=== PATIENT | female | born 1960 | race Two or more races ===

== ENCOUNTER 2020-09-29 22:06 | Emergency (ER) | payer MEDICAID ==
[~2020-09-29] VITALS: Ht 152.4 cm; Wt 87.0 kg
[~2020-09-29 22:06] MED LIST: GLIP10TA10 MT; LOSA25TA26 MT; METF-414 MT; SIMV5TAB58 MT
[2020-09-29 23:58] LABS: BASOPHILS % 0.4 % (0.0-2.0); EOSINOPHILS % 0.9 % (0.0-5.0); HEMATOCRIT. 34.9 % (36.0-48.0); HEMOGLOBIN. 11.7 g/dL (12.0-16.0); LYMPHOCYTES % 17.8 % (20.0-50.0); MEAN CORPUSCULAR HEMOGLOBIN 30.5 pg (28.0-32.0); MEAN CORPUSCULAR VOLUME 90.7 fL (81.0-99.0); MEAN PLATELET VOLUME 10.3 fl (7.4-10.4); MONOCYTES % 8.9 % (2.0-8.0); PLATELET 192 x1000/uL (130-400); RED BLOOD CELL COUNT 3.85 mill/uL (4.2-5.4); RED CELL DISTRIBUTION WIDTH 14.9 % (11.6-14.6)
[2020-09-30] LABS: CHLORIDE 108 mEq/L (98-107)
[2020-09-30 00:06] LABS: CLARITY URINE CLEAR (CLEAR); COLOR URINE YELLOW (YELLOW); KETONES URINE NEGATIVE (NEGATIVE); LEUKOCYTE ESTERASE URINE 2+ (NEGATIVE); NITRITE URINE NEGATIVE (NEGATIVE); OCCULT BLOOD URINE TRACE (NEGATIVE); PROTEIN URINE TRACE (NEGATIVE)
[2020-09-30 00:13] LABS: PROTHROMBIN TIME 10.3 sec (9.6-11.0)
[2020-09-30] MEDS ORDERED: KETOROLAC 15MG/ML VIAL IV NR (00:30)
[2020-09-30] MEDS ORDERED: SODIUM CHLORIDE 0.9% 1,000 ML IV NR (00:30)
[2020-09-30] MEDS ORDERED: SULF1TAB48 MT (01:26)
[2020-09-30] MEDS ORDERED: IBUP-2029 MT (01:26)
[2020-09-30] MEDS ORDERED: SULFAMETHOXAZOLE/TRIMETHOPRIM 800/160MG TABLET PO NR (01:45)
[2020-09-30 02:23] VITALS: BP 126/56
== END 2020-09-30 02:25 | disposition home or self-care (01) ==
LOC: ER 22:06 → ENRESERV 23:34 → CANRESERV 23:34 → ER 09-30 02:25 → CANBEDREQ 09-30 02:38
DX: N12 Tubulo-interstitial nephritis, not specified as acute or chronic (principal); R00.0 Tachycardia, unspecified; I10 Essential (primary) hypertension; E11.9 Type 2 diabetes mellitus without complications; M19.90 Unspecified osteoarthritis, unspecified site; E78.00 Pure hypercholesterolemia, unspecified; Z86.73 Personal history of transient ischemic attack (TIA), and cerebral infarction without residual deficits; Z87.440 Personal history of urinary (tract) infections; Z98.890 Other specified postprocedural states
CPT/HCPCS: 36415; 71045; 74176; 80053; 81003; 83605; 84145; 85025; 85610; 87040; 87077; 87086; 87186; 93005; 96361; 96374; 99285; J1885

== ENCOUNTER 2020-11-14 18:51 | Inpatient (IN) | payer MEDICAID ==
[~2020-11-14] VITALS: Ht 165.1 cm; Wt 90.3 kg
[~2020-11-14 18:51] MED LIST changes: +IBUP-2029 MT; +SULF1TAB48 MT
[2020-11-14] MEDS ORDERED: KETOROLAC 30MG/ML VIAL IV STA (19:33)
[2020-11-14] MEDS ORDERED: SODIUM CHLORIDE 0.9% 1000ML BAG (SEPSIS BOLUS) IV ONE (19:45)
[2020-11-14] MEDS ORDERED: CEFTRIAXONE 1 G PREMIX 50 ML IV ONE (19:45)
[2020-11-14] MEDS ORDERED: MEROPENEM 1,000 MG in SODIUM CHLORIDE 0.9% 100 ML IV SCH (19:45)
[2020-11-14 20:51] LABS: BASOPHILS % 0.2 % (0.0-2.0); EOSINOPHILS % 0.1 % (0.0-5.0); HEMATOCRIT. 35.4 % (36.0-48.0); LYMPHOCYTES % 7.9 % (20.0-50.0); MEAN CORPUSCULAR VOLUME 91.3 fL (81.0-99.0); MEAN PLATELET VOLUME 10.4 fl (7.4-10.4); MONOCYTES % 6.1 % (2.0-8.0); NEUTROPHILS % 85.7 % (40.0-76.0); PLATELET 168 x1000/uL (130-400); RED BLOOD CELL COUNT 3.87 mill/uL (4.2-5.4); RED CELL DISTRIBUTION WIDTH 14.8 % (11.6-14.6)
[2020-11-14 20:57] LABS: CHLORIDE 106 mEq/L (98-107)
[2020-11-14 21:00] LABS: PROTHROMBIN TIME 10.4 sec (9.6-11.0)
[2020-11-14 21:36] LABS: CLARITY URINE CLEAR (CLEAR); COLOR URINE YELLOW (YELLOW); KETONES URINE NEGATIVE (NEGATIVE); LEUKOCYTE ESTERASE URINE 2+ (NEGATIVE); NITRITE URINE NEGATIVE (NEGATIVE); OCCULT BLOOD URINE TRACE (NEGATIVE); PROTEIN URINE NEGATIVE (NEGATIVE); SPECIFIC GRAVITY URINE 1.008 (1.005-1.030); UROBILINOGEN URINE 0.2 E.U./dL (0.2-1.0)
[2020-11-15 02:50] VITALS: BP 139/58
[2020-11-15] MEDS ORDERED: DEXTROSE 50% WATER 50ML SYRINGE IV PRN (04:00)
[2020-11-15] MEDS ORDERED: CEFTRIAXONE 1 G PREMIX 50 ML IV SCH (04:00)
[2020-11-15] MEDS ORDERED: ONDANSETRON HCL 4MG/2ML INJ IV PRN (04:00)
[2020-11-15 05:10] VITALS: BP 139/58
[2020-11-15] MEDS ORDERED: CEFTRIAXONE 1,000 MG in DEXTROSE 5% WATER 50 ML IV SCH (06:00)
[2020-11-15] MEDS: INSULIN LISPRO 100 UNITS/ML SUBCUT SCH ×4 (06:54→20:26)
[2020-11-15] MEDS: BLOOD SUGAR DIAGNOSTIC STRIP TEST SCH ×4 (06:54→20:26)
[2020-11-15 08:00] VITALS: BP 104/58
[2020-11-15] MEDS ORDERED: METOPROLOL TARTRATE 25MG TABLET PO NR (08:15)
[2020-11-15] MEDS: DEXT 5%/0.45% NACL 1000ML 1,000 ML IV SCH (08:59)
[2020-11-15] MEDS: ENOXAPARIN 40MG/0.4ML SYR SUBCUT SCH (08:59)
[2020-11-15] MEDS: FAMOTIDINE 20MG TABLET PO SCH ×2 (08:59→20:15)
[2020-11-15 09:15] LABS: HEMATOCRIT. 32.6 % (36.0-48.0); HEMOGLOBIN. 10.7 g/dL (12.0-16.0); MEAN CORPUSCULAR HEMOGLOBIN 30.1 pg (28.0-32.0); MEAN PLATELET VOLUME 10.4 fl (7.4-10.4); PLATELET 139 x1000/uL (130-400); RED BLOOD CELL COUNT 3.54 mill/uL (4.2-5.4); RED CELL DISTRIBUTION WIDTH 14.7 % (11.6-14.6)
[2020-11-15 09:16] LABS: CHLORIDE 111 mEq/L (98-107)
[2020-11-15 09:25] LABS: LDL CHOLESTEROL 29 mg/dL (5-100)
[2020-11-15 09:26] LABS: HDL CHOLESTEROL 61 mg/dL (40-59)
[2020-11-15] MEDS ORDERED: POTASSIUM CHLORIDE 20MEQ TABLET SR PO NR (10:15)
[2020-11-15 12:00] VITALS: BP 141/49
[2020-11-15] MEDS: MEROPENEM 1,000 MG in SODIUM CHLORIDE 0.9% 100 ML IV SCH ×2 (12:44→18:26)
[2020-11-15 16:00] VITALS: BP 102/56
[2020-11-15 19:43] LABS: PLATELET ESTIMATE NORMAL
[2020-11-15 20:00] VITALS: BP 106/51
[2020-11-15] MEDS: ACETAMINOPHEN 325MG TABLET PO PRN (20:15)
[2020-11-16] VITALS: BP 112/56
[2020-11-16] MEDS: MEROPENEM 1,000 MG in SODIUM CHLORIDE 0.9% 100 ML IV SCH ×3 (01:08→17:37)
[2020-11-16 04:00] VITALS: BP 102/50
[2020-11-16] MEDS: INSULIN LISPRO 100 UNITS/ML SUBCUT SCH ×4 (06:26→21:18)
[2020-11-16] MEDS: BLOOD SUGAR DIAGNOSTIC STRIP TEST SCH ×4 (06:26→21:16)
[2020-11-16] MEDS: DEXT 5%/0.45% NACL 1000ML 1,000 ML IV SCH ×3 (06:47→21:20)
[2020-11-16 07:34] LABS: BASOPHILS % 0.2 % (0.0-2.0); EOSINOPHILS % 1.1 % (0.0-5.0); HEMATOCRIT. 32.8 % (36.0-48.0); LYMPHOCYTES % 12.7 % (20.0-50.0); MEAN CORPUSCULAR HEMOGLOBIN 30.7 pg (28.0-32.0); MEAN CORPUSCULAR VOLUME 91.8 fL (81.0-99.0); MEAN PLATELET VOLUME 10.3 fl (7.4-10.4); MONOCYTES % 8.7 % (2.0-8.0); NEUTROPHILS % 77.3 % (40.0-76.0); PLATELET 128 x1000/uL (130-400); RED BLOOD CELL COUNT 3.57 mill/uL (4.2-5.4); RED CELL DISTRIBUTION WIDTH 14.6 % (11.6-14.6)
[2020-11-16 07:44] LABS: CHLORIDE 111 mEq/L (98-107)
[2020-11-16 08:00] VITALS: BP 116/55
[2020-11-16] MEDS: FAMOTIDINE 20MG TABLET PO SCH ×2 (08:45→21:17)
[2020-11-16] MEDS: ENOXAPARIN 40MG/0.4ML SYR SUBCUT SCH (08:45)
[2020-11-16] MEDS: ACETAMINOPHEN 325MG TABLET PO PRN ×3 (08:51→23:21)
[2020-11-16 12:00] VITALS: BP 116/74
[2020-11-16 16:00] VITALS: BP 103/44
[2020-11-16 20:00] VITALS: BP 107/52
[2020-11-16] MEDS ORDERED: ZOLPIDEM TARTRATE 5MG TABLET PO PRN (23:00)
[2020-11-17] VITALS: BP 100/71
[2020-11-17] MEDS: MEROPENEM 1,000 MG in SODIUM CHLORIDE 0.9% 100 ML IV SCH ×3 (01:37→17:08)
[2020-11-17 04:00] VITALS: BP 102/52
[2020-11-17] MEDS: BLOOD SUGAR DIAGNOSTIC STRIP TEST SCH ×4 (06:25→21:00)
[2020-11-17] MEDS: INSULIN LISPRO 100 UNITS/ML SUBCUT SCH ×4 (06:25→21:00)
[2020-11-17 07:20] LABS: BASOPHILS % 0.3 % (0.0-2.0); EOSINOPHILS % 2.2 % (0.0-5.0); HEMATOCRIT. 32.7 % (36.0-48.0); HEMOGLOBIN. 10.8 g/dL (12.0-16.0); LYMPHOCYTES % 17.5 % (20.0-50.0); MEAN CORPUSCULAR HEMOGLOBIN 30.6 pg (28.0-32.0); MEAN CORPUSCULAR VOLUME 92.8 fL (81.0-99.0); MEAN PLATELET VOLUME 10.7 fl (7.4-10.4); MONOCYTES % 9.2 % (2.0-8.0); NEUTROPHILS % 70.8 % (40.0-76.0); PLATELET 148 x1000/uL (130-400); RED BLOOD CELL COUNT 3.53 mill/uL (4.2-5.4); RED CELL DISTRIBUTION WIDTH 14.8 % (11.6-14.6)
[2020-11-17 07:48] LABS: CHLORIDE 112 mEq/L (98-107)
[2020-11-17 08:00] VITALS: BP 121/70
[2020-11-17] MEDS: ENOXAPARIN 30MG/0.3ML SYR SUBCUT SCH ×2 (09:13→22:35)
[2020-11-17] MEDS: FAMOTIDINE 20MG TABLET PO SCH ×2 (09:13→22:34)
[2020-11-17 12:00] VITALS: BP 106/73
[2020-11-17] MEDS: DEXT 5%/0.45% NACL 1000ML 1,000 ML IV SCH (13:10)
[2020-11-17 16:00] VITALS: BP 124/85
[2020-11-17 20:00] VITALS: BP 125/66
[2020-11-18] VITALS: BP 106/58
[2020-11-18] MEDS: MEROPENEM 1,000 MG in SODIUM CHLORIDE 0.9% 100 ML IV SCH ×3 (02:15→17:10)
[2020-11-18] MEDS: DEXT 5%/0.45% NACL 1000ML 1,000 ML IV SCH ×2 (02:20→17:10)
[2020-11-18 04:00] VITALS: BP 106/80
[2020-11-18] MEDS: BLOOD SUGAR DIAGNOSTIC STRIP TEST SCH ×4 (07:10→20:03)
[2020-11-18 08:36] VITALS: BP 121/71
[2020-11-18] MEDS: FAMOTIDINE 20MG TABLET PO SCH ×2 (09:09→20:28)
[2020-11-18] MEDS: ENOXAPARIN 30MG/0.3ML SYR SUBCUT SCH ×2 (09:10→20:28)
[2020-11-18] MEDS: INSULIN LISPRO 100 UNITS/ML SUBCUT SCH ×4 (09:21→21:48)
[2020-11-18 12:08] VITALS: BP 113/54
[2020-11-18 16:06] VITALS: BP 102/59
[2020-11-18] MEDS: ACETAMINOPHEN 325MG TABLET PO PRN (19:52)
[2020-11-18 20:00] VITALS: BP 130/70
[2020-11-19] VITALS: BP 128/70
[2020-11-19] MEDS: MEROPENEM 1,000 MG in SODIUM CHLORIDE 0.9% 100 ML IV SCH ×3 (01:38→17:40)
[2020-11-19 04:00] VITALS: BP 113/52
[2020-11-19] MEDS: BLOOD SUGAR DIAGNOSTIC STRIP TEST SCH ×4 (06:17→21:01)
[2020-11-19] MEDS: INSULIN LISPRO 100 UNITS/ML SUBCUT SCH ×4 (06:41→21:01)
[2020-11-19 08:00] VITALS: BP 136/45
[2020-11-19] MEDS: ENOXAPARIN 30MG/0.3ML SYR SUBCUT SCH ×2 (10:00→20:47)
[2020-11-19] MEDS: DEXT 5%/0.45% NACL 1000ML 1,000 ML IV SCH ×2 (10:01→17:40)
[2020-11-19] MEDS: FAMOTIDINE 20MG TABLET PO SCH ×2 (10:01→20:47)
[2020-11-19 12:00] VITALS: BP 120/70
[2020-11-19 16:00] VITALS: BP 143/61
[2020-11-19 20:00] VITALS: BP 138/67
[2020-11-20] VITALS: BP 125/43
[2020-11-20 04:00] VITALS: BP_SYST 106; BP_DIAS 31; BP_DIAS 51
[2020-11-20] MEDS: MEROPENEM 1,000 MG in SODIUM CHLORIDE 0.9% 100 ML IV SCH ×3 (04:04→17:53)
[2020-11-20] MEDS: INSULIN LISPRO 100 UNITS/ML SUBCUT SCH ×4 (06:54→23:27)
[2020-11-20] MEDS: BLOOD SUGAR DIAGNOSTIC STRIP TEST SCH ×4 (06:54→21:00)
[2020-11-20 08:00] VITALS: BP 94/40
[2020-11-20] MEDS: FAMOTIDINE 20MG TABLET PO SCH ×2 (09:20→23:27)
[2020-11-20] MEDS: ENOXAPARIN 30MG/0.3ML SYR SUBCUT SCH ×2 (09:20→23:26)
[2020-11-20] MEDS: DEXT 5%/0.45% NACL 1000ML 1,000 ML IV SCH (09:22)
[2020-11-20 12:00] VITALS: BP 125/49
[2020-11-20 16:00] VITALS: BP 119/52
[2020-11-20 20:00] VITALS: BP 110/52
[2020-11-21] VITALS: BP 119/54
[2020-11-21] MEDS: MEROPENEM 1,000 MG in SODIUM CHLORIDE 0.9% 100 ML IV SCH ×2 (02:46→09:26)
[2020-11-21 04:00] VITALS: BP_SYST 100; BP_DIAS 50; BP_DIAS 56
[2020-11-21] MEDS: BLOOD SUGAR DIAGNOSTIC STRIP TEST SCH ×3 (06:24→17:15)
[2020-11-21] MEDS: DEXT 5%/0.45% NACL 1000ML 1,000 ML IV SCH ×2 (06:24→10:55)
[2020-11-21] MEDS: INSULIN LISPRO 100 UNITS/ML SUBCUT SCH ×3 (06:31→17:14)
[2020-11-21 08:00] VITALS: BP 122/66
[2020-11-21] MEDS: FAMOTIDINE 20MG TABLET PO SCH (09:26)
[2020-11-21] MEDS: ENOXAPARIN 30MG/0.3ML SYR SUBCUT SCH (09:26)
[2020-11-21 12:00] VITALS: BP 125/78
[2020-11-21 16:00] VITALS: BP 128/87
[2020-11-21 16:19] VITALS: BP 128/87
== END 2020-11-21 18:08 | disposition home or self-care (01) | DRG 720 ==
LOC: ER 21:36 → 8WST 11-15 00:32 → EDBEDREQ 11-15 00:34 → EDBEDREQTM 11-15 00:34 → EDBEDREQSVC 11-15 00:34 → ENRESERV 11-15 01:25
PROVIDERS: ADMIT Internal Medicine; ATTEND Internal Medicine
DX: A41.9 Sepsis, unspecified organism (principal); E11.649 Type 2 diabetes mellitus with hypoglycemia without coma; E66.9 Obesity, unspecified; E78.5 Hyperlipidemia, unspecified; I10 Essential (primary) hypertension; N20.0 Calculus of kidney; E78.00 Pure hypercholesterolemia, unspecified; N39.0 Urinary tract infection, site not specified; B96.20 Unspecified Escherichia coli [E. coli] as the cause of diseases classified elsewhere; Z86.19 Personal history of other infectious and parasitic diseases; Z79.899 Other long term (current) drug therapy; Z86.73 Personal history of transient ischemic attack (TIA), and cerebral infarction without residual deficits; Z68.33 Body mass index [BMI] 33.0-33.9, adult; Z71.3 Dietary counseling and surveillance
CPT/HCPCS: 36415; 71045; 74176; 80048; 80053; 80061; 81003; 82962; 83036; 83605; 84484; 85025; 87077; 87186; 93005; 99285; C1893; J0696; J1650; J1815; J1885; J2185; J7030; J7050; J7060

== ENCOUNTER 2021-03-25 15:19 | Emergency (ER) | payer MEDICAID ==
[~2021-03-25] VITALS: Ht 160 cm; Wt 90.0 kg
[~2021-03-25 15:19] MED LIST changes: -SULF1TAB48 MT
[2021-03-25 15:23] VITALS: BP 126/68
[2021-03-25 16:33] LABS: CHLORIDE 111 mEq/L (98-107)
[2021-03-25 16:34] LABS: BASOPHILS % 0.3 % (0.0-2.0); EOSINOPHILS % 1.8 % (0.0-5.0); HEMATOCRIT. 38.8 % (36.0-48.0); HEMOGLOBIN. 12.5 g/dL (12.0-16.0); LYMPHOCYTES % 25.2 % (20.0-50.0); MEAN CORPUSCULAR HEMOGLOBIN 29.5 pg (28.0-32.0); MEAN CORPUSCULAR VOLUME 91.7 fL (81.0-99.0); MEAN PLATELET VOLUME 10.1 fl (7.4-10.4); MONOCYTES % 8.4 % (2.0-8.0); NEUTROPHILS % 64.3 % (40.0-76.0); PLATELET 206 x1000/uL (130-400); RED BLOOD CELL COUNT 4.23 mill/uL (4.2-5.4); RED CELL DISTRIBUTION WIDTH 13.8 % (11.6-14.6)
[2021-03-25 16:37] LABS: ETHANOL BLOOD < 10 mg/dL
[2021-03-25] MEDS ORDERED: CARB-299 MT (17:28)
== END 2021-03-25 17:42 | disposition home or self-care (01) ==
LOC: ER 15:19
DX: G25.9 Extrapyramidal and movement disorder, unspecified (principal); E11.9 Type 2 diabetes mellitus without complications; E78.00 Pure hypercholesterolemia, unspecified; I10 Essential (primary) hypertension; Z79.899 Other long term (current) drug therapy
CPT/HCPCS: 36415; 80053; 80320; 82962; 85025; 93005; 99284; G0480

== ENCOUNTER 2022-02-08 15:51 | Emergency (ER) | payer MEDICAID ==
[~2022-02-08] VITALS: Ht 152.4 cm; Wt 104.0 kg
[~2022-02-08 15:51] MED LIST changes: +CARB-299 MT
[2022-02-08 17:43] VITALS: BP 121/56
[2022-02-08] MEDS ORDERED: VISCOUS LIDOCAINE 2% 15 ML UDC PO STA (18:11)
[2022-02-08] MEDS ORDERED: ACETAMINOPHEN 325MG TABLET PO STA (18:11)
[2022-02-08] MEDS ORDERED: ONDANSETRON 4MG ODT PO STA (18:11)
[2022-02-08] MEDS ORDERED: MAGNESIUM/ALUMINUM HYDROXIDE/SIMETHICONE 30ML UDC PO STA (18:11)
[2022-02-08 19:19] LABS: BASOPHILS % 0.3 % (0.0-2.0); CHLORIDE 111 mEq/L (98-107); HEMATOCRIT. 33.4 % (36.0-48.0); HEMOGLOBIN. 11.4 g/dL (12.0-16.0); LYMPHOCYTES % 28.8 % (20.0-50.0); MEAN CORPUSCULAR HEMOGLOBIN 31.4 pg (28.0-32.0); MEAN CORPUSCULAR VOLUME 91.8 fL (81.0-99.0); MONOCYTES % 7.4 % (2.0-8.0); NEUTROPHILS % 61.5 % (40.0-76.0); PLATELET 166 x1000/uL (130-400); RED BLOOD CELL COUNT 3.64 mill/uL (4.2-5.4); RED CELL DISTRIBUTION WIDTH 13.8 % (11.6-14.6)
[2022-02-08 19:27] LABS: ETHANOL BLOOD < 10 mg/dL
[2022-02-08] MEDS ORDERED: ONDA4TAB50 MT (20:08)
[2022-02-08] MEDS ORDERED: PROT40 MT (20:08)
[2022-02-08 20:11] LABS: *AMPHETAMINES SCREEN URINE NEGATIVE (NEGATIVE); *BARBITURATES SCREEN URINE NEGATIVE (NEGATIVE); *BENZODIAZEPINES SCREEN URINE NEGATIVE (NEGATIVE); *COCAINE SCREEN URINE NEGATIVE (NEGATIVE); CANNABINOID URINE SCREEN NEGATIVE (NEGATIVE); METHADONE URINE SCREEN NEGATIVE (NEGATIVE); OPIATES URINE SCREEN NEGATIVE (NEGATIVE); PHENCYCLIDINE URINE SCREEN NEGATIVE (NEGATIVE)
[2022-02-08 20:15] LABS: CLARITY URINE HAZY (CLEAR); COLOR URINE YELLOW (YELLOW); SPECIFIC GRAVITY URINE 1.025 (1.005-1.030)
[2022-02-08 20:16] LABS: KETONES URINE 1+ (NEGATIVE); NITRITE URINE NEGATIVE (NEGATIVE); OCCULT BLOOD URINE NEGATIVE (NEGATIVE); PROTEIN URINE 1+ (NEGATIVE); UROBILINOGEN URINE 0.2 E.U./dL (0.2-1.0)
[2022-02-08 20:17] LABS: LEUKOCYTE ESTERASE URINE 2+ (NEGATIVE)
[2022-02-08] MEDS ORDERED: NITR-87 MT (20:42)
== END 2022-02-08 20:50 | disposition home or self-care (01) ==
LOC: ER 16:06
DX: N39.0 Urinary tract infection, site not specified (principal); I10 Essential (primary) hypertension; E11.9 Type 2 diabetes mellitus without complications; E78.00 Pure hypercholesterolemia, unspecified; D64.9 Anemia, unspecified; Z13.9 Encounter for screening, unspecified
CPT/HCPCS: 36415; 76705; 80053; 80305; 80320; 81003; 83690; 85025; 87086; 99284; Q0162; G0480

== ENCOUNTER 2025-01-19 15:21 | Emergency (ER) | payer MEDICAID ==
[~2025-01-19] VITALS: Ht 160 cm; Wt 91.0 kg
[~2025-01-19 15:21] MED LIST changes: -CARB-299 MT; +CARB-324 MT; -GLIP10TA10 MT; +GLIP10TA17 MT; +IBUP-1455 MT; -IBUP-2029 MT; +NITR-87 MT; +ONDA4TAB50 MT; +PROT40 MT
[2025-01-19 15:29] VITALS: BP 133/65; PULSE 91; RESP 16; TEMP 36.7; O2SAT 99
[2025-01-19 16:19] LABS: BASOPHILS % 0.5 % (0.0-2.0); EOSINOPHILS % 2.6 % (0.0-5.0); HEMATOCRIT. 35.8 % (36.0-48.0); HEMOGLOBIN. 11.8 g/dL (12.0-16.0); LYMPHOCYTES % 21.0 % (20.0-50.0); MEAN PLATELET VOLUME 10.6 fl (7.4-10.4); MONOCYTES % 8.2 % (2.0-8.0); NEUTROPHILS % 67.7 % (40.0-76.0); PLATELET 175 x1000/uL (130-400); RED BLOOD CELL COUNT 3.90 mill/uL (4.2-5.4); RED CELL DISTRIBUTION WIDTH 13.7 % (11.6-14.6)
[2025-01-19 16:35] LABS: CREATININE 0.8 mg/dL (0.6-1.0); UREA NITROGEN BLOOD 14 mg/dL (9-23)
[2025-01-19 17:16] LABS: CLARITY URINE CLEAR (CLEAR); COLOR URINE YELLOW (YELLOW); GLUCOSE URINE NEGATIVE (NEGATIVE); KETONES URINE TRACE (NEGATIVE); LEUKOCYTE ESTERASE URINE 2+ (NEGATIVE); NITRITE URINE NEGATIVE (NEGATIVE); OCCULT BLOOD URINE 1+ (NEGATIVE); PH URINE 6.0 (4.5-8.0); PROTEIN URINE NEGATIVE (NEGATIVE); SPECIFIC GRAVITY URINE 1.017 (1.005-1.030); UROBILINOGEN URINE 0.2 E.U./dL (0.2-1.0)
[2025-01-19 17:32] LABS: BACTERIA URINE 2+; SQUAMOUS EPITHELIAL CELL URINE 1+ /lpf (RARE/1+)
[2025-01-19] MEDS ORDERED: CEFP200T14 MT (17:34)
== END 2025-01-19 18:45 | disposition home or self-care (01) ==
LOC: ER 15:21
DX: N39.0 Urinary tract infection, site not specified (principal); E11.9 Type 2 diabetes mellitus without complications; E78.00 Pure hypercholesterolemia, unspecified; I10 Essential (primary) hypertension; Z79.899 Other long term (current) drug therapy
CPT/HCPCS: 36415; 80048; 81003; 85025; 99283